=== PATIENT | male | born 1980 | race Caucasian/White ===

== ENCOUNTER → 2021-05-03 09:53 | Outpatient (BNVA) | payer OTHER, SELFPAY | PROVIDERS: Visit Provider Physician Assistant Medical | DX: H10.213 Acute toxic conjunctivitis, bilateral (principal) | CPT/HCPCS: 99203 ==

== ENCOUNTER 2024-05-30 07:42 | Emergency (ER) | payer OTHER, SELFPAY ==
--- NOTE | ~2024-05-30 | US_ITS ---
CLINICAL HISTORY: calf pain Venous duplex ultrasound left lower extremity Comparison: None Findings: The visualized deep veins are fully compressible with normal Doppler color flow and spectral tracings. No popliteal cyst. IMPRESSION: 1. Negative for left lower extremity deep vein thrombosis. This document has been electronically signed by: Zaid Medina MD on 05/30/2024 08:55:59
[2024-05-30 07:58] VITALS: BP 129/75; PULSE 64; RESP 16; TEMP 36.8; O2SAT 98; BMI 30.7
--- NOTE | 2024-05-30 08:08 | ED.LOWEXIN ---
HPI - Extremity Injury (Lower) General Chief Complaint: Extremity Injury, Lower Stated Complaint: r leg inj at work Time Seen by Provider: 05/30/24 08:05 Source: patient and RN notes reviewed Mode of arrival: ambulatory Limitations: no limitations History of Present Illness ED Provider: Lata Moya PA-C HPI Narrative: This is a 44-year-old male, with no known medical problems, who presents emergency department complaints of left calf pain since yesterday. Patient states that while he was running he felt sudden calf pain. Denies any popping sensation. Pain worsens with weight bearing and with stretching his calf. No recent travel, surgeries, hospitalizations or surgeries. No recent antibiotic use. denies history of injuring this calf in the past. Took ibuprofen yesterday which provided him with some relief. He works as a automotive worker. No fevers, chills, chest pain, shortness of breath, abdominal pain, nausea, vomiting or diarrhea. MD complaint: leg injury Onset (ago): day(s) Place: street/outdoors Exacerbating factors: weight bearing, movement and palpation Associated symptoms: able to partially bear weight and ambulatory Other symptoms: none Related Data Allergies Allergy/AdvReac Type Severity Reaction Status Date / Time No Known Allergies Allergy Verified 05/30/24 08:00 Review of Systems Review of Systems: Yes all other systems are reviewed and are negative Constitutional: Constitutional: Reports as per [facility] [place] Social History Social History Advance Directives: No Advance Directives Information Provided: No Physical Exam Vital Signs: Vital Signs: Last Vital Signs Temp 98.3 F 05/30/24 09:36 Pulse 64 05/30/24 09:36 Resp 16 05/30/24 09:36 BP 129/75 05/30/24 09:36 Pulse Ox 98 05/30/24 09:36 O2 Del Method Room Air 05/30/24 09:36 BMI result Body Mass Index 30.7 Const: General: cooperative, comfortable and no acute distress Orientation/consciousness: patient oriented x3 Limitations: no limitations HEENT: Head: Yes normal to inspection, Yes normocephalic and Yes atraumatic Ears: hearing grossly normal bilaterally General nose exam: Normal external nose present Face and sinus: Yes normal facial exam Mouth: Normal oral and palatal mucosa present, oropharynx normal and moist mucous membranes Throat: Yes posterior oropharynx normal Eyes: General: appearance normal, both eyes and all related structures Eyelids: Yes eyelids normal Conjunctivae: conjunctivae normal Sclerae: sclerae normal Pupils: Equal, round and reactive pupils present EOM: EOMs intact bilaterally Neck: Neck: Yes normal visual inspection, Yes full ROM and Yes no lymphadenopathy Lymphatic: no lymphadenopathy noted Chest: Chest palpation & inspection: normal inspection of the chest Resp: Effort & Inspection: normal respiratory effort and able to speak in complete sentences Auscultation: clear to auscultation bilaterally, no crackles, no rales, no rhonchi and no wheezes Cardio: Rate: regular rate Rhythm: regular rhythm Heart sounds: S1 normal heart sound present and S2 normal heart sound present GI: Inspection: Yes normal to inspection Skin: General skin exam: no rashes or lesions noted Trauma: no lacerations or abrasions Wounds: no wounds Neuro: General: patient oriented x3 and moves all extremities Cranial nerves: Yes Equal, round and reactive pupils present Extrem: Other: Left lower extremity, no edema noted, no overlying skin changes or warmth. He has tenderness palpation medial calf, no palpable deformities. Negative suarez's test. no deformity noted Achilles tendon. strong DP pulse. Pain with Darwin's sign. Full plantar and dorsiflexion intact General: Yes normal to inspection Right upper extremity: normal to inspection Left upper extremity: normal to inspection Right lower extremity: normal to inspection Left lower extremity: normal to inspection Course Reevaluation(s) Reevaluation #1: US negative for DVT. No cain's cyst. Discussed findings with patient. Likely MSK in nature. Given strict return precautions. Stable for d/c. Time: 09:02 Medical Decision Making Medical Decision Making MDM Narrative: This is a 44-year-old male who presents emergency department with concerns for left calf pain since yesterday. arrival, vital signs within normal limits. He is ambulatory with steady gait. Patient with tenderness palpation along the left medial calf, no palpable deformities or swelling. Achilles tendon is intact. Given TTP overlying calf, will obtain US. Vital signs within normal limits. Differential Diagnosis Differential Diagnoses: The differential diagnosis associated with the presentation includes DVT, evi's tendon rupture, tendonitis, cain's cyst. Radiology Impression Discussion of test interpretation with radiology: I have reviewed the radiologist's reading. Radiologist Impression: CLINICAL HISTORY: calf pain Venous duplex ultrasound left lower extremity Comparison: None Findings: The visualized deep veins are fully compressible with normal Doppler color flow and spectral tracings. No popliteal cyst. IMPRESSION: 1. Negative for left lower extremity deep vein thrombosis. This document has been electronically signed by: Zaid Medina MD on 05/30/2024 08:55:59 Dictated By: Zaid Medina MD Discharge Plan Discharge Clinical Impression: Pain of left calf, Muscle strain Patient Disposition: Home, Self-Care Instructions: Leg Cramps (ED), Leg Pain (ED) Additional Instructions: You were seen in the ER due to calf pain. Your US does not reveal any evidence of DVT or popiteal cyst. You likely strained your calf causing you to have your symptoms. Please rest, ice, elevate your leg for relief. Alternate between ibuprofen and or tylenol as needed for pain. If your symptoms persist, please follow up with the field talent qualification specialist. Call to make an appointment. If any new or worsening symptoms occur, including worsening pain, chest pain, shortness of breath, please seek emergent care. Referrals: [facility] [place] [facility] [Provider Group] Stand Alone Forms: Work/School Release Interventions: ED Discharge Assessment Last Done: 05/30/24 09:36 Discharge Date/Time: 05/30/24 09:37 Print Language: Stateless
[2024-05-30 09:36] VITALS: BP 129/75; PULSE 64; RESP 16; TEMP 36.8; O2SAT 98
== END 2024-05-30 09:37 | disposition home or self-care (01) ==
PROVIDERS: Emergency Provider Emergency Medicine
DX: S86.912A Strain of unspecified muscle(s) and tendon(s) at lower leg level, left leg, initial encounter (principal); R60.0 Localized edema; M79.605 Pain in left leg; X58.XXXA Exposure to other specified factors, initial encounter; Y93.02 Activity, running; Y93.89 Activity, other specified; Y92.89 Other specified places as the place of occurrence of the external cause; Y99.0 Civilian activity done for income or pay
CPT/HCPCS: 93971; 99282; 99284

== ENCOUNTER → 2024-05-30 08:17 | Outpatient (BNV) | payer OTHER, SELFPAY | PROVIDERS: Emergency Provider Emergency Medicine; Visit Provider Specialist | DX: M79.662 Pain in left lower leg (principal) | CPT/HCPCS: 93971 ==